=== PATIENT | female | born 1955 | race Asian ===

== ENCOUNTER 2020-03-30 07:32 | Day surgery (SDC) | payer BC, SELFPAY ==
[~2020-03-30] VITALS: Ht 160 cm; Wt 65.8 kg
[2020-03-30] MEDS ORDERED: SIMETHICONE 40 MG/0.6 ML ML PO ONE (07:33)
[2020-03-30] MEDS ORDERED: MIDAZOLAM HCL 2 MG/2 ML VIAL (VERSED) IVP ONE (07:33)
[2020-03-30] MEDS ORDERED: fentaNYL CITRATE/PF 100 MCG/2 ML AMP IVP ONE (07:33)
[2020-03-30] MEDS ORDERED: SIMETHICONE 40 MG/0.6 ML ML ONE (08:11)
[2020-03-30] MEDS ORDERED: fentaNYL CITRATE/PF 100 MCG/2 ML AMP ONE (08:11)
[2020-03-30] MEDS ORDERED: MIDAZOLAM HCL 5 MG/5 ML VIAL ONE (08:12)
[2020-03-30 13:07] VITALS: BP_SYST 117
== END 2020-03-30 10:10 | disposition home or self-care (01) ==
LOC: SDS 07:32 → SMU 07:33 → SDS 10:10
PROVIDERS: ATTEND Internal Medicine
DX: R19.4 Change in bowel habit (principal); D12.0 Benign neoplasm of cecum; Z86.010 Personal history of colon polyps; K57.30 Diverticulosis of large intestine without perforation or abscess without bleeding; K64.8 Other hemorrhoids; I10 Essential (primary) hypertension; R10.13 Epigastric pain; Z20.828 Contact with and (suspected) exposure to other viral communicable diseases
CPT/HCPCS: 45380; 88305; 99152; G0378; J2250; J3010; J3465; U0003